=== PATIENT | female | born 1965 | race Caucasian/White ===

== ENCOUNTER 2018-02-05 12:43 | Day surgery (SDC) | payer OTHER ==
[2018-02-05] MEDS ORDERED: FENTAnyl 50 MCG/ML VIAL (14:58)
[2018-02-05] MEDS ORDERED: MIDAZOLAM 1 MG/ML 2 ML INJ ×2 (14:58→14:59)
== END 2018-02-05 16:39 | disposition home or self-care (01) ==
LOC: GIL 12:43
DX: Z12.11 Encounter for screening for malignant neoplasm of colon (principal); K64.8 Other hemorrhoids; I10 Essential (primary) hypertension; E11.9 Type 2 diabetes mellitus without complications
CPT/HCPCS: 45378; 82962